=== PATIENT | male | born 1980 | race Caucasian/White ===

== ENCOUNTER 2016-09-11 14:44 | Emergency (ER) | payer OTHER ==
[~2016-09-11] VITALS: Ht 188 cm; Wt 97.5 kg
[~2016-09-11 14:44] MED LIST: ATIVAN1 MG PO; COZAAR50 MG PO; NORVASC10 MG PO
[2016-09-11 14:52] VITALS: BP 124/83
[2016-09-11] MEDS ORDERED: ASPIRIN 325 MG TAB ONE (15:00)
--- NOTE | 2016-09-11 15:00 | NUR ---
TALKED TO DR. FAYE REGARDING CHEST PAIN PER MD GIVE ASPIRIN 325 MG PO NOW
== END 2016-09-11 15:00 | disposition left against medical advice (07) ==
LOC: MED 14:49
DX: R07.89 Other chest pain (principal); I10 Essential (primary) hypertension; Z53.21 Procedure and treatment not carried out due to patient leaving prior to being seen by health care provider

== ENCOUNTER 2018-12-06 06:37 | Day surgery (SDC) | payer OTHER ==
[~2018-12-06] VITALS: Ht 188 cm; Wt 122.5 kg
[~2018-12-06 06:37] MED LIST changes: +AMLO10TA PO; -ATIVAN1 MG PO; +COZ50 PO; -COZAAR50 MG PO; +LORA-476 PO; -NORVASC10 MG PO
[2018-12-06] MEDS ORDERED: METO50TE2 PO (07:11)
[2018-12-06] MEDS ORDERED: AMLO5TAB PO (07:11)
[2018-12-06] MEDS ORDERED: HYDR-3298 PO (07:11)
[2018-12-06] MEDS ORDERED: fentaNYL 0.05 MG/ML VIAL ONE (08:05)
[2018-12-06] MEDS ORDERED: MIDAZOLAM 2 MG/2 ML VIAL ONE ×2 (08:05→08:06)
== END 2018-12-06 09:35 | disposition home or self-care (01) ==
LOC: MDS 06:37 → MMU 06:37 → MDS 09:35
PROVIDERS: ATTEND Internal Medicine Gastroenterology
DX: K31.89 Other diseases of stomach and duodenum (principal); B96.81 Helicobacter pylori [H. pylori] as the cause of diseases classified elsewhere; I10 Essential (primary) hypertension; K21.9 Gastro-esophageal reflux disease without esophagitis; E66.9 Obesity, unspecified; Z68.34 Body mass index [BMI] 34.0-34.9, adult; Z72.89 Other problems related to lifestyle; Z79.899 Other long term (current) drug therapy; Z80.0 Family history of malignant neoplasm of digestive organs
CPT/HCPCS: 36415; 43239; 86677; J2250; J3010